=== PATIENT | male | born 1995 | race Caucasian/White ===

== ENCOUNTER → 2022-04-10 07:07 | Outpatient (CLI) | payer OTHER, SELFPAY ==
--- NOTE | 2022-04-10 07:10 | DI.MRI.S_ITS ---
PROCEDURE: MR SHOULDER RT WO CON INDICATIONS: RIGHT SHOULDER PAIN TECHNIQUE: Noncontrast oblique coronal T2 fast spin echo with fat saturation, oblique sagittal T1 spin echo and T2 fast spin echo with fat saturation, axial T1 spin echo and T2 fast spin echo with fat saturation through the shoulder. COMPARISON: None. FINDINGS: Image quality: Excellent. Rotator cuff: Low-grade articular and bursal surface partial thickness tear involving distal supraspinatus at its insertion on the humeral head is seen extending to musculotendinous junction. Distal infraspinatus tendinosis is seen. Distal subscapularis tendon is intact. No full-thickness rotator cuff tendon rupture. Sagittal images demonstrate no muscle atrophy. Bones and bursae: Mild edema involving acromioclavicular joint is seen without discrete fracture line. No other area of abnormal marrow signal. Nonspecific subcortical cyst formation in posterior lateral humeral head is seen near rotator cuff tendon insertion. No pathologic subacromial-subdeltoid or subcoracoid bursal fluid is present. Capsule and soft tissues: There is signal abnormality and contour irregularity involving posterior inferior labrum with adjacent slightly lobulated cystic structure measures up to 9 x 8 x 11 mm in size. The long head of the biceps tendon demonstrates normal location and morphology. The rotator interval appears normal, without fibrosis. The coracohumeral ligament is normal in thickness. IMPRESSION: 1. Tendinosis and very low-grade articular and bursal surface partial thickness tear involving distal supraspinatus extending to musculotendinous junction. Distal infraspinatus tendinosis. No full-thickness rotator cuff tendon rupture. 2. Edema involving acromion and distal clavicle adjacent to acromioclavicular joint without discrete fracture line which may indicate bony contusion. No fracture or dislocation. No suspicious intraosseous lesion. No significant joint effusion or subacromial subdeltoid bursal fluid. 3. Suggestion of posterior inferior labral tear at 6 to 8 o'clock position with adjacent 8 x 9 x 11 mm paralabral cyst . Dictated by: Delfin Kamara M.D. on 04/10/2022 at 8:19 Approved by: Delfin Kamara M.D. on 04/10/2022 at 8:23
== END ==
PROVIDERS: Referring Provider Physician Assistant; Visit Provider Physician Assistant
DX: M75.111 Incomplete rotator cuff tear or rupture of right shoulder, not specified as traumatic (principal)
CPT/HCPCS: 73221

== ENCOUNTER → 2022-04-27 07:38 | Outpatient (CLI) | payer OTHER, SELFPAY ==
--- NOTE | 2022-04-27 | DI.MRI.S_ITS ---
PROCEDURE: MR SHOULDER LT WO CON INDICATIONS: Fall, shoulder pain. TECHNIQUE: Noncontrast oblique coronal T2 fast spin echo with fat saturation, oblique sagittal T1 spin echo and T2 fast spin echo with fat saturation, axial T1 spin echo and T2 fast spin echo with fat saturation through the shoulder. COMPARISON: [facility], MR, MR SHOULDER RT WO CON, 04/10/2022, 7:36. FINDINGS: Image quality: Excellent. Rotator cuff: The supraspinatus, infraspinatus, and subscapularis tendons appear intact throughout. Sagittal images demonstrate no muscle atrophy. Bones and bursae: Moderate ill-defined T2 signal elevation within the anterior aspect of the humeral head, consistent with contusion, given the history recent fall.. No acromioclavicular joint degeneration. The acromion demonstrates conventional anatomy, without an os acromiale. No pathologic subacromial-subdeltoid or subcoracoid bursal fluid is present. Capsule and soft tissues: There is undercutting of the posterior labrum. The long head of the biceps tendon demonstrates normal location and morphology. The rotator interval appears normal, without fibrosis. The coracohumeral ligament is normal in thickness. IMPRESSION: 1. Contusion within the humeral head. 2. Posterior labral tearing. Dictated by: Benita Ivan M.D. on 04/27/2022 at 9:29 Approved by: Benita Ivan M.D. on 04/27/2022 at 9:31
== END ==
PROVIDERS: PCP Family Medicine; Referring Provider Family Medicine; Visit Provider Family Medicine
DX: S40.012A Contusion of left shoulder, initial encounter (principal); S43.492A Other sprain of left shoulder joint, initial encounter; M25.512 Pain in left shoulder; W19.XXXA Unspecified fall, initial encounter
CPT/HCPCS: 73221